=== PATIENT | female | born 1970 | race Caucasian/White ===

== ENCOUNTER 2016-11-08 13:39 | Emergency (ER) | payer OTHER ==
[~2016-11-08] VITALS: Ht 162.6 cm; Wt 100.8 kg
[~2016-11-08 13:39] MED LIST: CALC200T3 PO; DICY10CA3 PO; DULO60CA6 PO; ESCI20TA PO; FURO-69 PO; IBUP100O7 PO; OMEP10CA3 PO; ONDA4TAB7 PO; SUMA100T3 PO; TOPI100T39 PO; TRAM-29 PO
[2016-11-08 14:21] LABS: POTASSIUM ISTAT 3.6 mmol/L (3.5-5.0)
[2016-11-08 14:41] LABS: ALBUMIN 3.4 g/dL (3.4-5.0); ALK PHOS 89 U/L (46-116); ALT (SGPT) 27 U/L (14-59); AST (SGOT) 18 U/L (15-37); DIRECT BILIRUBIN < 0.1 mg/dL (0.0-0.2); TOTAL BILIRUBIN 0.2 mg/dL (0.2-1.0); TOTAL PROTEIN 6.6 g/dL (6.4-8.2)
--- NOTE | 2016-11-08 14:43 | RAD ---
Exam performed: CT scan of the head without contrast. Date of Service: 11/08/16. Comparison: None available. Clinical History: Dizziness for 2 weeks. Technique: Helical acquisitions are obtained from the foramen magnum to the vertex without intravenous administration of contrast. Findings: The ventricles are midline without evidence of dilatation. Normal toscano-white differentiation is maintained. There is no extra axial fluid collection, intraparenchymal hemorrhage or mass lesion. The visualized portions of the orbits and the mastoid air cells appear clear. Mucoperiosteal thickening seen in the left maxillary sinus. The calvarium is intact. Impression: 1. No acute intracranial process detected. 2. Left maxillary sinus disease. PQRS Compliance Statement: One or more of the following individualized dose reduction techniques were utilized for this examination: 1. Automated exposure control 2. Adjustment of the mA and/or kV according to patient size 3. Use of iterative reconstruction technique
[2016-11-08] MEDS ORDERED: MECLIZINE HCL 12.5 MG TABLET. PO ONE (14:45)
[2016-11-08] MEDS ORDERED: ASPIRIN 325 MG TABLET PO ONE (14:45)
--- NOTE | 2016-11-08 14:55 | PHYS DOC ---
Past Medical History Past Medical History: Anxiety, Depression, Migraines, Other Additional Past Medical Histor: PANIC ATTACKS, CHRONIC BACK PAIN Past Surgical History: Cholecystectomy, Hysterectomy, Tubal ligation Alcohol Use: None Drug Use: None Adult General Chief Complaint Chief Complaint: MULTIPLE COMPLAINTS HPI HPI Patient is a 46 year old female who presents with multiple complaints from primary care doctor's office. She had an episode of chest pain last night prior to midnight after picking up her cat, that was left-sided, achy, constant lasting minutes to an hour, and was resolved when she woke this morning. She also notes intermittent anxiety recently but she is not currently anxious. She also notes intermittent dizziness that lasts seconds and is worse with head movements or changes of positions; this improves when she sits still. She also notes bilateral lower extremity edema that is worse than chronic bilateral lower extremity edema over the past few weeks. She also notes she had high blood pressure at her doctor's office, but she does not carry a diagnosis of hypertension. She denies headache, vision changes, numbness, tingling, weakness , dyspnea, orthopnea, exertional chest pain, exertional dyspnea, cough, hemoptysis, leg pain, abdominal pain, nausea or vomiting, fever or chills. Review of Systems Review of Systems Constitutional: Denies fever or chills [] Eyes: Denies change in visual acuity, redness, or eye pain [] HENT: Denies nasal congestion or sore throat [] Respiratory: Denies cough or shortness of breath [] Cardiovascular: No additional information not addressed in HPI [] GI: Denies abdominal pain, nausea, vomiting, bloody stools or diarrhea [] : Denies dysuria or hematuria [] Musculoskeletal: Denies back pain or joint pain [] Integument: Denies rash or skin lesions [] Neurologic: Denies headache, focal weakness or sensory changes [] Endocrine: Denies polyuria or polydipsia [] Current Medications Current Medications Current Medications Medications (Trade) Dose Ordered Sig/Richardson Start Time Stop Time Status Last Admin Dose Admin Aspirin (Jayshree Aspirin) 325 mg 1X ONCE 11/08/16 14:45 11/08/16 14:46 DC 11/08/16 14:27 325 MG Meclizine HCl (Antivert) 25 mg 1X ONCE 11/08/16 14:45 11/08/16 14:46 DC 11/08/16 14:27 25 MG Allergies Allergies Allergies Coded Allergies Type Severity Reaction Last Updated Verified cephalexin Allergy Intermediate 10/20/14 Yes prednisone Allergy Intermediate 10/20/14 Yes Physical Exam Physical Exam Constitutional: Well developed, well nourished, no acute distress, non-toxic appearance. [] HENT: Normocephalic, atraumatic, bilateral external ears normal, oropharynx moist, no oral exudates, nose normal. [] Eyes: PERRLA, EOMI. [] Neck: Normal range of motion, supple. [] Cardiovascular:Heart rate regular rhythm [] Lungs & Thorax: Bilateral breath sounds clear to auscultation. Mild chest wall tenderness to left anterior chest in the area of complaint with no palpable or visual abnormality [] Abdomen: Bowel sounds normal, soft, no tenderness. [] Skin: Warm, dry, no erythema, no rash. [] Back: Normal range of motion. [] Extremities: No tenderness, ROM intact, 1+ bilateral lower extremity edema, no palpable cord, no skin color changes. [] Neurologic: Alert and oriented X 3, normal motor function, normal sensory function, no focal deficits noted, cranial nerves II through XII intact, no pronator drift, normal Romberg, normal finger to nose, ambulatory with a narrow steady gait. [] Psychologic: Affect normal, judgement normal, mood normal. [] Current Patient Data Vital Signs Vital Signs Date Time Temp Pulse Resp B/P Pulse Ox O2 Delivery O2 Flow Rate FiO2 11/08/16 14:08 98.5 94 14 166/92 97 Room Air 98.5 Lab Values Laboratory Tests Test 11/08/16 14:00 11/08/16 14:05 11/08/16 14:06 Total Bilirubin 0.2mg/dL (0.2-1.0) Direct Bilirubin < 0.1mg/dL (0.0-0.2) Aspartate Amino Transferase (AST) 18U/L (15-37) Alanine Aminotransferase (ALT) 27U/L (14-59) Alkaline Phosphatase 89U/L (46-116) VM-Eeo-Q-Type Natriuretic Peptide 380pg/mL (0-124) H Total Protein 6.6g/dL (6.4-8.2) Albumin 3.4g/dL (3.4-5.0) POC Hemoglobin 12.9g/dL (12-15) POC Hematocrit 38% (36-40) POC Sodium 141mmol/L (135-145) POC Potassium 3.6mmol/L (3.5-5.0) POC Chloride 107mmol/L (98-110) POC Total CO2 21mmol/L (23-32) L Anion Gap 18mmol/L (6-14) H POC Blood Urea Nitrogen 5mg/dL (8-26) L POC Creatinine 0.7mg/dL (0.5-1.4) Glucose Level 117mg/dL (70-99) H POC Ionized Calcium (Rosina) 1.17mmol/L (1.13-1.32) POC Troponin I 0.00ng/ml (<0.08) Laboratory Tests 11/08/16 14:05 EKG EKG EKG as interpreted by me as normal sinus rhythm, rate 77, no ST-T changes, normal intervals, no ectopy Radiology/Procedures Radiology/Procedures Chest xray as interpreted by me with no acute cardiopulmonary disease process Head CT without contrast Impression: 1. No acute intracranial process detected. 2. Left maxillary sinus disease. DICTATED and SIGNED BY: ANTONIO ABREU MD DATE: 11/08/16 0535 Course & Med Decision Making Course & Med Decision Making Pertinent Labs and Imaging studies reviewed. (See chart for details) Workup is unremarkable. Encouraged close follow-up with primary care for complaints and high blood pressure here. Return precautions given. She understands and agrees with plan. Dragon Disclaimer Dragon Disclaimer This electronic medical record was generated, in whole or in part, using a voice recognition dictation system. Departure Departure Impression: Primary Impression: Chest pain Additional Impressions: Dizziness Bilateral lower extremity edema Disposition: HOME, SELF-CARE Condition: STABLE Referrals: MIGUEL ÁNGEL FORMAN MD (PCP) Patient Instructions: Chest Pain (Nonspecific), [id number], Vertigo, Easy-to- Read Additional Instructions: Take meclizine as needed for dizziness that is likely vertigo. Follow-up with your primary care doctor. Return for any concerns. Scripts Meclizine Hcl 25 Mg Tablet1 Tab PO PRN TID PRN DIZZINESS #20 TAB Prov:Lili ELY MD 11/08/16 Problem Qualifiers Primary Impression: Chest pain Chest pain type: other chest pain Qualified Code: R07.89 - Other chest pain Lili ELY MD Nov 08, 2016 14:55
--- NOTE | 2016-11-08 15:03 | RAD ---
Chest, 2 views, 11/08/2016: History: Chest pain The heart size and pulmonary vascularity are normal. No pulmonary infiltrates are seen. There is no evidence of pleural fluid. Mild spurring is present in the spine. IMPRESSION: No acute cardiopulmonary abnormality is detected.
[2016-11-08] MEDS ORDERED: MECL25TA3 PO (15:05)
[2016-11-08 15:18] VITALS: BP 166/92
--- NOTE | 2016-11-09 07:05 | EKG ---
[facility] [address] [place] [address] Test Date: 2016-11-08 Test Time: 13:47:27 Pat Name: JULY HART Department: Room: Gender: F Training And Documentation Specialist: : 1970 Requested By: Lili ELY Order Number: [id number] Reading MD: Measurements Intervals [place] Rate: 77 P: 0 ME: 146 QRS: 6 QRSD: 100 T: 24 QT: 390 QTc: 443 Interpretive Statements SINUS RHYTHM RI6.01 Unconfirmed report No previous ECG available for comparison
== END 2016-11-08 15:22 | disposition home or self-care (01) ==
LOC: ER 13:39
DX: R07.89 Other chest pain (principal); R42 Dizziness and giddiness; R60.0 Localized edema; G43.909 Migraine, unspecified, not intractable, without status migrainosus; G89.29 Other chronic pain; F41.9 Anxiety disorder, unspecified; F32.9 Major depressive disorder, single episode, unspecified; Z90.49 Acquired absence of other specified parts of digestive tract; Z90.710 Acquired absence of both cervix and uterus; Z98.51 Tubal ligation status; Z88.1 Allergy status to other antibiotic agents; Z88.8 Allergy status to other drugs, medicaments and biological substances
CPT/HCPCS: 36415; 70450; 71020; 80047; 80076; 83880; 84484; 93005; 99285; J8597

== ENCOUNTER → 2017-04-27 | Outpatient (CLI) | payer OTHER ==
[~2017-04-27] MED LIST changes: -ESCI20TA PO; +ESCITALOPRAM OX20 MG PO; +IBUP100O24 PO; -IBUP100O7 PO; +MECL25TA3 PO; -TOPI100T39 PO; +TOPI100T42 PO; -TRAM-29 PO; +TRAM-48 PO
--- NOTE | 2017-04-27 12:07 | RAD ---
Indication back pain for several years. AP and lateral views of the lumbar spine were obtained as well as a coned view targeted to the lumbosacral junction. Vertebral height alignment and disc spaces are unremarkable. Significant degenerative changes are not seen. No acute finding is apparent. IMPRESSION: Normal plain films of the lumbar spine
== END ==
LOC: RAD 09:36
PROVIDERS: ATTEND Surgery
DX: M54.9 Dorsalgia, unspecified (principal)
CPT/HCPCS: 72100

== ENCOUNTER → 2017-08-22 | Outpatient (CLI) | payer OTHER ==
--- NOTE | 2017-08-22 17:51 | RAD ---
3 views left shoulder radiograph 08/22/2017 Clinical indication: Left shoulder pain. Comparison: None. Findings: No acute fracture or traumatic malalignment. Left glenohumeral articulation is maintained. Periarticular soft tissues are unremarkable. Impression: No acute osseous abnormality.
--- NOTE | 2017-08-22 17:51 | RAD ---
3 views right foot radiograph 08/22/2017 Clinical indication: Nontraumatic right foot pain. Comparison: None. Findings: No acute fracture or traumatic malalignment. Joint spaces are maintained. Soft tissues unremarkable. Impression: No acute osseous abnormality.
== END | disposition home or self-care (01) ==
LOC: RAD 16:07
PROVIDERS: ATTEND Psychiatry & Neurology Neurology with Special Qualifications in Child Neurology
DX: M79.671 Pain in right foot (principal); M25.512 Pain in left shoulder
CPT/HCPCS: 73030; 73630

== ENCOUNTER → 2017-09-21 | Outpatient (CLI) | payer OTHER ==
--- NOTE | 2017-09-22 03:05 | PAIN ---
DATE OF SERVICE: 09/21/2017 PROGRESS NOTE FOR PAIN CLINIC DIAGNOSES: 1. Lumbar radiculopathy with lumbar degenerative disk disease. 2. Cervical radiculopathy with cervical degenerative disk disease. 3. Myofascial pain. HISTORY OF PRESENT ILLNESS: The patient is a 47-year-old female who returns for followup, last seen 09/29/2016. The patient had undergone epidural steroid injections x 3 at that time and reports about a 50% improvement into the back, hips and bilateral lower extremity pain. The patient reports that since that time, the pain has returned over the past 5 to 6 months or more in the low back, bilateral hips, primarily radiating to posterior gluteus, posterior thighs, posterior calf, lateral and anterior thighs as well and lateral lower legs. The patient reports it is worse with standing, walking, changing positions and sitting. She is unable to sit straight. She has to lean usually on her left side to get the pain off of her right side as her right side is more prominent and more painful with radiating pain into the right lower extremity. The patient reports no new motor or sensory deficits, no bowel or bladder incontinence. Reports pain is aching, tingling, burning also becoming more constant, radiating and sometimes more severe. The patient rates her pain as a 10 on a scale of 10 at its worse, 5 on average and a 3 at its least and is a 5 today. The patient reports it awakens her from sleep about every 5 to 6 hours at least once or twice at night. She can usually reposition and get back to sleep or take pain medication. The patient reports that she had a nurse practitioner evaluation for insurance who told her that she had fibromyalgia and she is wondering if this may indeed be the case. The patient has a history of very small disk protrusion at L5-S1 on an MRI scan dated 11/2015, but no further followup x-rays or MRIs have been performed and the patient has significant radicular component in the right leg especially, but also in the left. The patient reports no other new motor or sensory deficits or other complaints. We had suggested on her last visit almost a year ago for some water therapy and weight loss therapy. She is not performed either of these at this time. PHYSICAL EXAMINATION: VITAL SIGNS: Today, the patient's blood pressure is 160/92, pulse 77, respirations 18, temperature is 98.7 degrees Fahrenheit, height is 5 feet 4 inches and weight is 212 pounds. GENERAL: The patient is awake, alert, oriented, appropriate and very pleasant demeanor. HEENT: Head is normocephalic and atraumatic. Extraocular movements are intact and symmetrical. Oral cavity: Mucous membranes are moist and pink. Dentition is intact. NECK: Shows anterior throat is supple without palpable lymphadenopathy noted. Swallow reflex is symmetrical. CHEST: Shows clear to auscultation bilaterally. HEART: Shows S1 and S2 clear. No murmurs are auscultated. ABDOMEN: Obese, soft, nontender and nondistended. No palpable organomegaly is noted. No rebound or guarding demonstrated. MUSCULOSKELETAL: The patient's back shows spine grossly in the midline. Normal appearing thoracic kyphosis, cervical lordotic curvature and lumbar lordotic curvature. No previous bruises, lesions, rashes or scars are noted. With palpation, the patient's cervical paraspinous muscle shows diffuse tenderness in the inferior aspect and the middle aspect of the cervical paraspinous muscles, but without significant radiation. The patient has full rotational motion of the cervical spine both laterally as well as extension and flexion greater than 45 degrees, right and left lateral as well as extension fully and full forward flexion without significant difficulty. The patient's thoracic spine shows symmetrical with inspection of the trapezius as well as thoracic paraspinous musculature with some moderate tenderness with palpation, but no specific trigger points and no radiation of pain bilaterally. The patient's lumbar spine shows symmetrical lumbar paraspinous musculature, moderate tenderness with palpation in the middle and lower distribution of the paraspinous muscles, but again symmetrical, no evidence of atrophy, hypertrophy, no trigger points, no tenderness over the sacrum or sacroiliac regions. The patient shows good rotational motion both laterally greater than 10 degrees right and left well as extension greater than 10 degrees, forward flexion 45 degrees without significant pain reported. Lower extremities show deep tendon reflexes at 2+ in the patellar, 1+ tendo calcaneus tendons. Motor exam is 4 on a scale of 5 with the right dorsiflexion and extension and 5/5 on the left. The patient also has some pain with palpation in the medial and lateral malleolus on the right foot only, but no deficits with range of motion. Peripheral pulses are 1+ posterior tibial and dorsalis pedis pulses. No peripheral edema is noted. Options were discussed with the patient, the patient's old chart was reviewed as was her current medication regimen updated. Current review of systems updated today as well and we will check first a repeat MRI scan of the lumbar spine. It has been almost 2 years since she has had a scan with a small L5-S1 disk protrusion with increasing radicular pain especially in the right leg. This could be progressing and has not been evaluated in over a year. Also we will try Medrol Dosepak to see if this may decrease some swelling and inflammation potentially from disk protrusion or stenosis as well as generalized fibromyalgia pain. The patient was given instruction as well as side effects to be aware with the medication. We will follow up after MRI scan is obtained. MARYCRUZ PERALES MD DR: HARRY/mary JOB#: [id number] / [id number]
== END | disposition home or self-care (01) ==
LOC: PNCL 14:57
PROVIDERS: ATTEND Anesthesiology
DX: M51.16 Intervertebral disc disorders with radiculopathy, lumbar region (principal); M50.10 Cervical disc disorder with radiculopathy, unspecified cervical region
CPT/HCPCS: 99212

== ENCOUNTER → 2017-09-28 | Outpatient (CLI) | payer OTHER ==
--- NOTE | 2017-09-29 07:55 | KCIC ---
MRI Lumbar Spine without contrast History: Lumbar radiculopathy, low back pain for several years, bilateral lower extremity radiculopathy Technique: Multiplanar, multi sequential noncontrast MR imaging was performed of the lumbar spine. Contrast: None Comparison: 11/09/2015 Findings: Other than superior L4 Schmorl's node, lumbar vertebral body stature is preserved. Vertebral body AP alignment is maintained. Conus terminates at L2. There is mild degenerative disc disease at L2-3, mild disc desiccation L3-4, also degenerative disc disease of visualized inferior thoracic levels of T11-12 and T10-11. There is no significant marrow edema of the lumbar spine. There is mild edema of the T10-T11 endplates. L2-L3: There is minimal disc osteophyte complex and bulge. There is anterior annular tear as seen previously. Spinal canal and neural foramina are adequate. L3-L4: Spinal canal and neural foramina are adequate. L4-L5: Spinal canal and the neural foramina are adequate. L5-S1: Neural foramina and spinal canal are adequate. Impression: 1. There is mild degenerative disc disease and spondylosis L2-3. There is no significant lumbar spinal stenosis or neural foramina compromise. There is degenerative disc disease of visualized inferior thoracic levels, mild T10-T11 endplate edema likely reactive/degenerative in etiology. Electronically signed by: Harshal Griggs MD (09/29/2017 7:52 AM) [id number]
== END | disposition home or self-care (01) ==
LOC: KCIC MRI 16:42
PROVIDERS: ATTEND Anesthesiology
DX: M51.16 Intervertebral disc disorders with radiculopathy, lumbar region (principal); Z88.1 Allergy status to other antibiotic agents; Z88.8 Allergy status to other drugs, medicaments and biological substances
CPT/HCPCS: 72148

== ENCOUNTER → 2017-12-05 | Outpatient (CLI) | payer OTHER | END | disposition home or self-care (01) | LOC: PNCL 09:48 | DX: M51.16 Intervertebral disc disorders with radiculopathy, lumbar region (principal); M50.30 Other cervical disc degeneration, unspecified cervical region; R53.83 Other fatigue | CPT/HCPCS: 99212 ==

== ENCOUNTER → 2018-09-24 | Outpatient (CLI) | payer OTHER, MEDICAID ==
[~2018-09-24] MED LIST changes: -IBUP100O24 PO; +IBUP100O25 PO
--- NOTE | 2018-09-24 21:47 | PAIN ---
DATE OF SERVICE: 09/24/2018 PROGRESS NOTE FOR PAIN CLINIC DIAGNOSES: 1. Lumbar radiculopathy with lumbar degenerative disk disease. 2. Cervical radiculopathy with cervical degenerative disk disease. 3. Myofascial pain. HISTORY OF PRESENT ILLNESS: The patient is a 48-year-old female who returns for followup, last seen on 12/05/2017. The patient had recently normal MRI scan at that time but still significant pain in the low back with shooting pain into the left leg. The patient reports this is returning again. She did do well few years ago with a lumbar epidural steroid injection but with recently last year, MRI that was relatively normal in the lumbar spine. We elected to go with Savella as she does have some myofascial pain and a history of fibromyalgic pain. The patient did very well with the Savella and has been very well controlled with it since last September. The patient had not been seen since that time. We had her come in today for an office visit and to discuss her medications. The patient reports that she is doing very well with the Savella, decreases the pain significantly by at least 75%. The patient reports still some pain in the right shoulder as well as the low back but the pain is streaking into the left lower extremity at times, feels more electrical and it happens more at night, also has pain in the fingertips, which comes and goes in the right hand. The patient reports pain in the back and legs, sharp, shooting, tingling, stabbing at times, sometimes radiating, can get severe but generally is not. The patient is using heat therapy as well as stretching with message therapy using her 's inversion table, which seems to help the low back pain as well. The patient rates her pain as 8 on a scale of 10 at its worst in the legs, 7 in the back, on average is a 7 and at least is a 4 on a scale of 10. The patient reports her pain as a 4 today. The patient reports no new motor or sensory deficits and no new bowel or bladder incontinence or other complaints. PHYSICAL EXAMINATION: VITAL SIGNS: The patient's blood pressure 131/96, pulse 98, respirations are 18 and temperature is 98.9 degrees Fahrenheit. Height is 5 feet 4 inches and weighs 195 pounds. GENERAL: The patient is awake, alert, oriented, appropriate and very pleasant demeanor. HEENT: Head shows normocephalic and atraumatic. Extraocular movements are intact and symmetrical. Oral cavity: Mucous membranes moist and pink. Dentition is intact. NECK: Shows anterior throat supple without palpable lymphadenopathy noted. Swallow reflex is symmetrical. CHEST: Shows normal on inspection. Breath sounds clear to auscultation bilaterally. HEART: Shows S1 and S2 clear. No murmurs auscultated. ABDOMEN: Obese, soft, nontender and nondistended. No palpable organomegaly is noted. No rebound or guarding demonstrated. BACK: Shows spine grossly in the midline. Normal appearing thoracic kyphosis and lumbar lordotic curvature. Lumbar paraspinous muscle shows symmetrical on inspection, with palpation shows some moderate tenderness diffusely bilaterally but only diffusely without radiation. The patient has good rotational motion of the lumbar spine, both laterally as well as extension and flexion. The patient has some moderate tenderness with palpation in the mid and upper thoracic paraspinous musculature in the rhomboid, the right greater than the left, without specific trigger points but diffusely tender and firm, more so than the left side in this region. The patient shows no radiation of pain. Lumbar paraspinous musculature likewise is moderately tender bilaterally with palpation but only diffusely in the middle and lower distribution of the paraspinous muscles. EXTREMITIES: The patient's upper extremities show deep tendon reflexes 2+ in the biceps and triceps tendons. Motor exam is strong with marine habitat resource specialist strength rated at 5/5 and equal. Lower extremities show deep tendon reflexes at 1+ in the patellar and tendo-calcaneus tendons. Motor exam is strong with 4-5 but symmetrical dorsiflexion, extension, quadriceps and hamstring flexion. Peripheral pulses are 2+ radial, 1+ posterior tibia. No peripheral edema is noted bilaterally in the upper or lower extremities. The patient does have multiple lesions on the upper extremities in a parklike fashion. When asked about these, the patient reports she has been picking at them as she had some ringworm recently but is maintaining the wound as she is scratching them frequently, does not appear to be infected. No drainage. They are dry but erythematous and parklike in fashion of various stages of healing scabs. Options were discussed with the patient. The patient's old chart was reviewed as well as her current medication regimen updated. Current review of systems updated today as well and we will refill the patient's Savella 50 mg twice daily as she does very well with this and has been controlling her pain adequately. Also, we will try Medrol Dosepak in the meantime as she has some more diffuse pain into the left lower extremity and did well with epidural steroids in the past. We will see how this does before ordering any further x-rays or MRI scans if it resolves the radicular type pain in the Savella, which has been controlling her myofascial pain significantly as well, we will maintain. The patient was given instructions as well as side effects to be aware of each of medications. We will follow up as scheduled. MARYCRUZ PERALES MD DR: HARRY/nts JOB#: [id number] / [id number]
== END | disposition home or self-care (01) ==
LOC: PNCL 13:29
PROVIDERS: ATTEND Anesthesiology
DX: M51.16 Intervertebral disc disorders with radiculopathy, lumbar region (principal); M50.10 Cervical disc disorder with radiculopathy, unspecified cervical region; M79.18 Myalgia, other site
CPT/HCPCS: G0463

== ENCOUNTER → 2019-06-11 | Outpatient (CLI) | payer OTHER, MEDICAID ==
[~2019-06-11] MED LIST changes: -OMEP10CA3 PO; +OMEP10CA4 PO; +POTA20TA82 PO; +TRIA1CAP3 PO
--- NOTE | 2019-06-11 15:35 | PAIN ---
DATE OF SERVICE: 06/11/2019 PROGRESS NOTE FOR PAIN CLINIC DIAGNOSES: 1. Lumbar radiculopathy with lumbar degenerative disk disease. 2. Cervical radiculopathy with cervical degenerative disk disease. 3. Myofascial pain. HISTORY OF PRESENT ILLNESS: The patient is a 49-year-old female who returns for followup, last seen on 09/2018. We had been managing with Savella as well as a Medrol Dosepak. Previously she had lumbar epidural steroid injections with good results, most recently in 2016 with 100% improvement after her third injection. The patient reports the pain is now identical to what it was several years ago in the low back, bilateral lower extremities, posterolateral thighs, anterior thighs, medial thighs, medial and posterior lower legs with numbness and tingling. The patient reports it is sharp, shooting, stabbing, radiating, becoming more constant and unbearable with standing and walking, but on and off in intensity, better with sitting, better with lying down, but has been awakening her from sleep at least twice a night. The patient reports a 6-7 on a scale of 10 at its worst over the past week, 5 on average, 5 at its least and a 5 today. The patient reports no recent injury or accident. The pain has been returning for several months now, but getting worse gradually. The patient reports she is to the point where she needs to do something about it because it is becoming very problematic with all of her daily activities as well as sleep disruption. The patient reports no new bowel or bladder incontinence, no new motor or sensory deficits. The patient's old chart was reviewed as her current medication regimen updated. Current review of systems updated today as well and MRI scan reviewed from 2017. PHYSICAL EXAMINATION: VITAL SIGNS: The patient's blood pressure 144/78, pulse 99, respirations are 18, temperature is 99.2 degrees Fahrenheit, height is 5 feet 4 inches, weight is 200 pounds. GENERAL: The patient is awake, alert, oriented, appropriate, very pleasant demeanor. HEENT: Shows normocephalic, atraumatic. Extraocular movements are intact and symmetrical. Oral cavity: Mucous membranes moist and pink. Dentition is intact. NECK: Shows anterior throat supple without palpable lymphadenopathy noted. Swallow reflex symmetrical. CHEST: Shows normal on inspection. Breath sounds clear to auscultation bilaterally. HEART: Shows S1, S2 clear. No murmurs auscultated. ABDOMEN: Soft, nontender, nondistended. No palpable organomegaly is noted. No rebound or guarding demonstrated. BACK: Shows spine grossly in the midline. Normal appearing thoracic kyphosis and some minor flattening of lumbar lordotic curvature. Lumbar paraspinous muscle shows symmetrical on inspection, with palpation shows some moderate tenderness diffusely, but only diffusely without significant radiation. EXTREMITIES: The patient's lower extremities show deep tendon reflexes at 1+ in the patellar and tendo calcaneus tendons. Motor exam is approximately 4 on a scale of 5, but symmetrical and equal with dorsiflexion, extension, quadriceps and hamstring flexion. Peripheral pulses are 1+ posterior tibia. No peripheral edema is noted. The patient's straight leg raise noted to be positive bilaterally, but only about 35 to 40 degrees, decreased with knee flexion. Gaenslen's and Hunter's maneuvers are negative grossly bilaterally as well. The patient is able to stand, stand on her toes without significant difficulty or loss of balance, walks with a slight shuffling gait, does not use any assistive devices to ambulate. PLAN: Options were discussed with the patient. The patient's old chart was reviewed as her current medication regimen updated. Current review of systems updated today as well. We will preauthorize patient for lumbar epidural steroid injection as she has significant radicular pain in L4-L5 dermatomal distribution and has responded very well in the past to the epidural steroid injections with near 100% improvement after her last injection. The patient will continue doing stretching and strengthening exercises that she is doing these on her own. She has had some therapy in the past, but nothing recently. She is still doing some stretching from those therapy sessions on her own by her report. Also, encouraged her to walk as much as tolerated daily if possible. The patient will continue with this. Also, try Medrol Dosepak. The patient was given instruction as well as side effects to be aware of with the medication and will follow up in approximately 2 weeks and plan on lumbar epidural steroid injection at that time L4-L5 translaminar approach for bilateral L4-L5 dermatomal radiculopathy. MARYCRUZ PERALES MD DR: HARRY/mary JOB#: [id number] / [id number]
== END | disposition home or self-care (01) ==
LOC: PNCL 10:10
PROVIDERS: ATTEND Anesthesiology
DX: M51.16 Intervertebral disc disorders with radiculopathy, lumbar region (principal); M50.10 Cervical disc disorder with radiculopathy, unspecified cervical region; M79.18 Myalgia, other site
CPT/HCPCS: G0463

== ENCOUNTER → 2019-06-25 | Outpatient (CLI) | payer OTHER, MEDICAID ==
[~2019-06-25] MED LIST changes: +IOHEXOL 180 MG/ML 10 ML VIAL. ONE; +methylPREDNISolone ACETATE 40 MG/ML VIAL. ONE; +methylPREDNISolone ACETATE 80 MG/ML VIAL. ONE
--- NOTE | 2019-06-25 22:21 | PAIN ---
DATE OF SERVICE: 06/25/2019 PROGRESS NOTE FOR PAIN CLINIC DIAGNOSES: 1. Lumbar radiculopathy with lumbar degenerative disk disease. 2. Cervical radiculopathy with cervical degenerative disk disease. 3. Myofascial pain. HISTORY OF PRESENT ILLNESS: The patient is a 49-year-old female who returns for followup status post initial evaluation and preauthorization for lumbar epidural steroid injection. The patient reports still significant pain in the low back, bilateral lower extremities, right equal to left posterior gluteus, posterolateral thigh, lateral anterior thighs, medial thighs and posterior lower leg. The patient reports it is aching, sharp, dull, tingling, cramping, stabbing, radiating and sometimes unbearable, worse with walking and standing. The patient reports significant fatigue over the past few weeks as well and she has had a migraine for the last few days. The patient reports it is waking up her from sleep at night. She is having increased fatigability where she is unable to walk even the distance of her own driveway without stopping to rest. The patient reports she has no shortness of breath, no chest pain, but significant fatigue with the low back and lower extremities. PHYSICAL EXAMINATION: VITAL SIGNS: The patient's blood pressure 143/84, pulse 93, respirations 18, temperature 98.9 degrees Fahrenheit, height is 5 feet 4 inches, and weight is 199 pounds. GENERAL: The patient is awake, alert, oriented, appropriate, very pleasant demeanor. HEENT: Shows normocephalic, atraumatic. Extraocular movements are intact and symmetrical. Oral cavity: Mucous membranes moist and pink. Dentition is intact. NECK: Shows anterior throat supple without palpable lymphadenopathy noted. Swallow reflex symmetrical. CHEST: Shows normal on inspection. Breath sounds clear to auscultation bilaterally. HEART: Shows S1, S2 clear. No murmurs auscultated. ABDOMEN: Soft, nontender, nondistended. No palpable organomegaly is noted. No rebound or guarding demonstrated. BACK: Shows spine grossly in the midline. Normal appearing thoracic kyphosis and lumbar lordotic curvature. Lumbar paraspinous muscle shows symmetrical on inspection, on palpation shows some moderate tenderness diffusely bilaterally, but diffusely without significant radiation. The patient has good rotational motion of lumbar spine, both laterally as well as extension and flexion without difficulty. EXTREMITIES: Lower extremities show deep tendon reflexes 1+ in the patellar and tendo calcaneus tendons. Motor exam is approximately 4 on a scale of 5, but equal and symmetrical dorsiflexion, extension, quadriceps and hamstring flexion. Peripheral pulses are 1+ posterior tibia. No peripheral edema is noted. Options were discussed with the patient. The patient's old chart was reviewed as her current medication regimen updated. Current review of systems updated today as well. We will proceed with a lumbar epidural steroid injection today, the first in this series. Risks were discussed including but not limited to bleeding, infection, possibility of epidural hematoma, subsequent neurological compromise, dural puncture, headaches, spinal cord and/or nerve damage, side effects of steroid medication and poor results regarding pain control. The patient understands and wished to proceed. The patient will return to clinic in approximately 2 weeks for followup. She was counseled to return appointment, activity level, and side effects to be aware of. DIAGNOSIS: Lumbar radiculopathy with lumbar degenerative disk disease. PROCEDURE: Lumbar epidural steroid injection, translaminar approach L4-L5 level using C-arm guidance under sterile prep and drape using local anesthetic. MEDICATION INJECTED: Total of 120 mg Depo-Medrol plus 10 mL of preservative-free normal saline and 2 mL of contrast. CONDITION AT DISCHARGE: Stable. The patient tolerated the procedure well, had no complications. MARYCRUZ PERALES MD DR: HARRY/mary JOB#: [id number] / [id number]
== END ==
LOC: PNCL 10:26
PROVIDERS: ATTEND Anesthesiology
DX: M51.16 Intervertebral disc disorders with radiculopathy, lumbar region (principal); M50.10 Cervical disc disorder with radiculopathy, unspecified cervical region; M79.18 Myalgia, other site
CPT/HCPCS: 62323; J1030; J1040; Q9965

== ENCOUNTER → 2019-07-16 | Outpatient (CLI) | payer OTHER, MEDICAID ==
[~2019-07-16] MED LIST changes: -IOHEXOL 180 MG/ML 10 ML VIAL. ONE; -methylPREDNISolone ACETATE 40 MG/ML VIAL. ONE; -methylPREDNISolone ACETATE 80 MG/ML VIAL. ONE
--- NOTE | 2019-07-16 19:02 | PAIN ---
DATE OF SERVICE: 07/16/2019 PROGRESS NOTE FOR PAIN CLINIC DIAGNOSES: 1. Lumbar radiculopathy with lumbar degenerative disk disease. 2. Cervical radiculopathy with cervical degenerative disk disease. 3. Myofascial pain. HISTORY OF PRESENT ILLNESS: This is a 49-year-old female who returns for followup status post lumbar epidural steroid injection x 1. The patient reports about 75% improvement initially over the first week to 2 weeks and the pain began to return, still about 50% improvement. Her main complaint is severe migraine headaches and left-sided twitching in her arm and leg as well as some weakness in the left arm, which is inconsistent, note that she has been dropping some items occasionally. The patient has a followup with her neurologist in 2 days. I encouraged her to keep that appointment. The patient reports her back is doing better, but again returning with the pain in the low back, bilateral lower extremities, in the posterior gluteus, posterolateral thigh, lateral anterior thigh, anterior medial thigh, medial lower legs bilaterally, essentially equal right and left at this time with radicular pain in L4-L5 dermatomal distribution. The patient reports the pain is an 8 on a scale of 10 in the low back at its worst over the past week, 7 on average, 5 at its least, so 7 today. The patient reports it is aching, sharp, tight, shooting, dull, cramping in the back, tingling and burning as well in the leg and radiating, becoming constant with activity, walking, standing, changing positions. Initially, she has increased her activity with greater distance walking, doing household activities with greater ease and comfort and traveling with greater ease and comfort, but the pain has returned now in the back and legs, where it is waking her from sleep or it is sleep which is not very restful. The patient reports no new motor or sensory deficits or other complaints other than that with the left side as described. PHYSICAL EXAMINATION: VITAL SIGNS: The patient's blood pressure 139/87, pulse 93, respirations 18, temperature is 98.3 degrees Fahrenheit, height is 5 feet 4 inches, weight is 199 pounds. GENERAL: The patient is awake, alert, oriented, appropriate, very pleasant demeanor. HEENT: Shows normocephalic, atraumatic. Extraocular movements are intact and symmetrical. Oral cavity: Mucous membranes moist and pink. Dentition is intact. NECK: Shows anterior throat supple without palpable lymphadenopathy noted. Swallow reflex symmetrical. CHEST: Shows normal on inspection. Breath sounds clear to auscultation bilaterally. HEART: Shows S1, S2 clear. No murmurs auscultated. ABDOMEN: Soft, nontender, nondistended. No palpable organomegaly is noted. No rebound or guarding demonstrated. BACK: Shows spine grossly in the midline. Normal-appearing thoracic kyphosis and some flattening of lumbar lordotic curvature. Lumbar paraspinous muscle shows symmetrical on inspection, on palpation shows some moderate tenderness diffusely bilaterally going diffusely without significant radiation. EXTREMITIES: The patient's lower extremities show deep tendon reflexes at 1+ in the patellar and tendo calcaneus tendons are equal. Motor exam is approximately 4 on a scale of 5, but symmetrical dorsiflexion, extension, quadriceps and hamstring flexion. Peripheral pulses are 1+ bilaterally. No peripheral edema is noted in the lower extremities. Options were discussed with the patient. The patient's old chart was reviewed as her current medication regimen updated. Current review of systems updated today as well. We will preauthorize the patient for a second in the series of lumbar epidural steroid injection with fluoroscopic guidance. The patient with again significant improvement after the first injection with pain returning in the L4-L5 dermatomal distribution. We will preauthorize for a translaminar approach at the L4-L5 level. In the meantime, the patient will continue doing stretching and strengthening exercises, walking daily as tolerated, and again will follow up with her neurologist on the 10th of this month. MARYCRUZ PERALES MD DR: HARRY/mary JOB#: [id number] / [id number]
== END | disposition home or self-care (01) ==
LOC: PNCL 14:15
PROVIDERS: ATTEND Anesthesiology
DX: M51.16 Intervertebral disc disorders with radiculopathy, lumbar region (principal); M50.10 Cervical disc disorder with radiculopathy, unspecified cervical region; M54.5 Low back pain; G43.909 Migraine, unspecified, not intractable, without status migrainosus
CPT/HCPCS: G0463

== ENCOUNTER → 2019-07-24 | Outpatient (CLI) | payer OTHER, MEDICAID ==
--- NOTE | 2019-07-24 13:21 | EEG ---
DATE OF SERVICE: 07/24/2019 EEG NUMBER: [id number] OBJECTIVE: The patient is a 49-year-old female with post-concussion syndrome. DESCRIPTION: This is a digital study. Electrodes are placed according to the international 10-20 system. Bipolar and referential montages are available. Activation procedures typically include hyperventilation and intermittent photic stimulation. INTERPRETATION: The waking background consists of 8 Hz, 20-50 microvolt activity. There is a large amount of beta activity. Stage 1 sleep is achieved. Hyperventilation and intermittent photic stimulation are noncontributory. IMPRESSION: This electroencephalogram with the patient awake and asleep is within normal limits. Beta activity usually represents a lack of relaxation or may be due to a medication effect. There is no focal, paroxysmal or epileptiform activity. Thank you for letting us help with the patient's care. BELLE ANDRADE MD DR: REGINA/mary JOB#: [id number] / [id number]
== END | disposition home or self-care (01) ==
LOC: RT 07:48
PROVIDERS: ATTEND Psychiatry & Neurology Neurology with Special Qualifications in Child Neurology
DX: F07.81 Postconcussional syndrome (principal); R55 Syncope and collapse; R42 Dizziness and giddiness
CPT/HCPCS: 95816

== ENCOUNTER → 2019-07-29 | Outpatient (CLI) | payer OTHER, MEDICAID ==
--- NOTE | 2019-07-29 10:16 | KCIC ---
EXAM: Brain MRI without contrast. HISTORY: Chronic migraine. TECHNIQUE: Multiplanar, multisequence magnetic resonance imaging of the brain was performed without contrast. COMPARISON: 10/20/2014 FINDINGS: There is no restricted diffusion to suggest acute or subacute infarction. There is no mass effect or midline shift. There is no hydrocephalus. There is a small nonspecific focus of T2/FLAIR hyperintensity within the posterior right periventricular white matter. The orbits are unremarkable. There is mild paranasal sinus mucosal thickening. There are fairly symmetrically prominent Meckel's caves, likely of no clinical significance. There is a tiny amount of fluid within the right mastoid air cells. There are normal flow voids within the cerebral vessels. IMPRESSION: 1. No acute intracranial finding. 2. Stable tiny nonspecific focus of signal change within the posterior right periventricular white matter. The differential includes chronic small vessel disease as well as a focus of chronic demyelination. Electronically signed by: Sepideh Gutierrez MD (07/29/2019 10:13 AM) [id number]
== END | disposition home or self-care (01) ==
LOC: KCIC MRI 09:16
PROVIDERS: ATTEND Psychiatry & Neurology Neurology with Special Qualifications in Child Neurology
DX: G43.719 Chronic migraine without aura, intractable, without status migrainosus (principal); M79.7 Fibromyalgia; R25.1 Tremor, unspecified; F07.81 Postconcussional syndrome; R42 Dizziness and giddiness; Z90.710 Acquired absence of both cervix and uterus; Z90.49 Acquired absence of other specified parts of digestive tract; Z98.51 Tubal ligation status
CPT/HCPCS: 70551

== ENCOUNTER → 2019-07-30 | Outpatient (CLI) | payer OTHER, MEDICAID ==
[~2019-07-30] MED LIST changes: +IOHEXOL 180 MG/ML 10 ML VIAL. ONE; +methylPREDNISolone ACETATE 40 MG/ML VIAL. ONE; +methylPREDNISolone ACETATE 80 MG/ML VIAL. ONE
--- NOTE | 2019-07-30 20:59 | PAIN ---
DATE OF SERVICE: 07/30/2019 PROGRESS NOTE FOR PAIN CLINIC DIAGNOSES: 1. Lumbar radiculopathy with lumbar degenerative disk disease. 2. Cervical radiculopathy with cervical degenerative disk disease. 3. Myofascial pain. HISTORY OF PRESENT ILLNESS: This is a 49-year-old female who returns for followup status post lumbar epidural steroid injection x 1 with about a 75% improvement initially, but down to about 50% improvement. This was back in 06/20/2019. The patient did well with these over the years traditionally, and the pain is returning now. Reports she has been stumbling and falling at home, worse with the walking and standing. Now, the pain is getting in both the lower extremities, not just the right side, but also on the left side. The patient reports the pain is 7 on a scale of 10 at its worst over the past week, 6-7 on average, and 6 at its least and is a 6 today. It is aching, sharp, dull, tight, shooting, cramping, stabbing, tingling, constant, radiating, unbearable at times in the low back and legs, also some pain in the neck and shoulders. She has recently had an EEG, has also an MRI of the brain via her neurosurgeon to look for any type of other etiology of the weakness in her body. The patient reports no new motor or sensory deficits, no new bowel or bladder incontinence. PHYSICAL EXAMINATION: VITAL SIGNS: The patient's blood pressure is 138/90, pulse 94, respirations 16, temperature is 98.6 degrees Fahrenheit, weight is 201 pounds. GENERAL: The patient is awake, alert, oriented, appropriate, very pleasant demeanor. HEENT: Shows normocephalic, atraumatic. Extraocular movements are intact and symmetrical. Oral cavity: Mucous membranes moist and pink. Dentition is intact. NECK: Shows anterior throat supple without palpable lymphadenopathy noted. Swallow reflex is symmetrical. CHEST: Shows normal on inspection. Breath sounds clear to auscultation bilaterally. HEART: Shows S1, S2 clear. No murmurs auscultated. ABDOMEN: Soft, nontender, nondistended. No palpable organomegaly is noted. No rebound or guarding demonstrated. BACK: Shows spine grossly in the midline. Normal appearing thoracic kyphosis and lumbar lordotic curvature. Lumbar paraspinous muscle shows symmetrical on inspection, on palpation shows some moderate tenderness diffusely in the middle and lower distribution of the paraspinous muscles, but only diffusely without significant radiation. EXTREMITIES: The patient's lower extremities show deep tendon reflexes at 1+ in the patellar and tendo calcaneus tendons. Motor exam is strong with approximately 4 on a scale of 5, but equal and symmetrical dorsiflexion, extension, quadriceps and hamstring flexion and are equal bilaterally. Peripheral pulses are 1+ posterior tibial. No peripheral edema is noted. Options were discussed with the patient. The patient's old chart was reviewed as her current medication regimen updated. Current review of systems updated today as well. We will proceed with a second in the series of lumbar epidural steroid injection today with fluoroscopic guidance. Risks were again discussed including, but not limited to bleeding, infection, possibility of epidural hematoma, subsequent neurological compromise, dural puncture, headaches, spinal cord and/or nerve damage, side effects of steroid medication and poor results regarding pain control. The patient understands and wished to proceed. The patient will return to clinic in approximately 2 weeks for followup. She was counseled on return appointment, activity level, and side effects to be aware of. DIAGNOSIS: Lumbar radiculopathy with lumbar degenerative disk disease. PROCEDURE: Lumbar epidural steroid injection, translaminar approach L4-L5 level using C-arm fluoroscopic guidance under sterile prep and drape using local anesthetic. MEDICATION INJECTED: The patient received a total of 120 mg Depo-Medrol plus 10 mL of preservative-free normal saline and 2 mL of contrast. CONDITION AT DISCHARGE: Stable. The patient tolerated the procedure well, had no complications. MARYCRUZ PERALES MD DR: HARRY/mary JOB#: [id number] / [id number]
== END ==
LOC: PNCL 14:00
PROVIDERS: ATTEND Anesthesiology
DX: M51.16 Intervertebral disc disorders with radiculopathy, lumbar region (principal); M50.10 Cervical disc disorder with radiculopathy, unspecified cervical region; M79.18 Myalgia, other site
CPT/HCPCS: 62323; J1030; J1040; Q9965

== ENCOUNTER → 2019-08-01 | Outpatient (CLI) | payer OTHER, MEDICAID ==
[~2019-08-01] MED LIST changes: -IOHEXOL 180 MG/ML 10 ML VIAL. ONE; -methylPREDNISolone ACETATE 40 MG/ML VIAL. ONE; -methylPREDNISolone ACETATE 80 MG/ML VIAL. ONE
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
== END ==
LOC: KCIC MRI 10:56
PROVIDERS: ATTEND Anesthesiology
DX: M51.16 Intervertebral disc disorders with radiculopathy, lumbar region (principal); M48.061 Spinal stenosis, lumbar region without neurogenic claudication
CPT/HCPCS: 72148

== ENCOUNTER → 2019-08-12 | Outpatient (CLI) | payer OTHER, MEDICAID ==
[~2019-08-12] MED LIST changes: +BUPIVACAINE MPF 0.25% 10 ML VIAL. ONE; +POTA20TA4 PO; -POTA20TA82 PO; +methylPREDNISolone ACETATE 40 MG/ML VIAL. ONE
== END ==
LOC: PNCL 13:21
PROVIDERS: ATTEND Anesthesiology
DX: M79.18 Myalgia, other site (principal); M51.16 Intervertebral disc disorders with radiculopathy, lumbar region; M50.10 Cervical disc disorder with radiculopathy, unspecified cervical region; Z72.89 Other problems related to lifestyle
CPT/HCPCS: 20552; J1030; J3490

== ENCOUNTER → 2019-09-19 | Outpatient (CLI) | payer OTHER, MEDICAID ==
[~2019-09-19] MED LIST changes: +GABA600T7 PO
--- NOTE | 2019-09-19 21:47 | PAIN ---
DATE OF SERVICE: 09/19/2019 PROGRESS NOTE FOR PAIN CLINIC DIAGNOSES: 1. Lumbar radiculopathy with lumbar degenerative disk disease. 2. Cervical radiculopathy with cervical degenerative disk disease. 3. Myofascial pain. HISTORY OF PRESENT ILLNESS: The patient is a 49-year-old female who returns for followup status post trigger point injections on 08/12/2019, did very well with these with about a 75% improvement initially, but the pain has returned now in the base of the neck and left shoulder and upper extremity with some significant radiating pain in the left arm into the hand with numbness and tingling in the hand. The patient reports it is an 8 on a scale of 10 at its worst over the past week, 7 on average, 5 at its least and is a 7 today. The patient reports it is aching, sharp, tight, dull, shooting, tingling, and burning with radiating pain in the left arm. The patient reports it is worse with weightbearing with left arm, also worse with walking, standing, changing positions, awakens her from sleep about every 5 hours at night. The patient reports no loss of motor function, but significant fatigability with the left arm, has some significant spasticity and cramping in the base of the neck and shoulder as well as in the upper back. The patient reports no new motor or sensory deficits, no new bowel or bladder incontinence. PHYSICAL EXAMINATION: VITAL SIGNS: The patient's blood pressure 130/83, pulse 85, respirations 16, temperature 98.3 degrees Fahrenheit, height is 5 feet 4 inches, weight is 202 pounds. GENERAL: The patient is awake, alert, oriented, appropriate, very pleasant demeanor. HEENT: Shows normocephalic, atraumatic. Extraocular movements are intact and symmetrical. Oral cavity: Mucous membranes moist and pink. Dentition is intact. NECK: Shows anterior throat supple without palpable lymphadenopathy noted. Swallow reflex symmetrical. CHEST: Shows normal on inspection. Breath sounds clear to auscultation bilaterally. HEART: Shows S1, S2 clear. ABDOMEN: Obese, soft, nontender, nondistended. BACK: Shows spine grossly in the midline. Slight exaggeration of thoracic kyphosis, some normal cervical lordotic curvature and thoracic kyphotic curvature is slightly flattened. Cervical paraspinous muscle shows symmetrical on inspection, with palpation shows some very firm rope-like musculature consistent with trigger point areas of musculature, more on the left than the right, but present bilaterally without specific radiation. This is true into the superior medial trapezius as well as the lateral trapezius, more on the left medial trapezius than the right with very firm rope-like musculature, this is true into the rhomboid distribution as well as the upper and mid thoracic paraspinous musculature, again worse on the left than the right with very firm rope-like musculature consistent with trigger point areas of muscle in the musculature palpated without significant radiation. EXTREMITIES: The patient's upper extremities show deep tendon reflexes at 2+ in the biceps, triceps tendons. Motor exam is strong with food preparation kitchen aide strength rated at 5/5 as is bicep and tricep flexion and symmetrical. Peripheral pulses are 2+ radial distribution. No peripheral edema is noted. Options were discussed with the patient. The patient's old chart was reviewed as her current medication regimen updated. Current review of systems updated today as well. We will proceed with trigger point areas of the identified musculature. Risks were again discussed including, but not limited to bleeding, infection, possibility of intravascular injection sequelae, spread of local anesthetic and numbness, pneumothorax, side effects of steroid medication and poor results regarding pain control. The patient understands and wished to proceed. The patient will return to the clinic in approximately 2 weeks for followup. She was counseled as to return appointment, activity level and side effects to be aware of. I also ordered MRI scan of cervical spine as she has increasing symptoms of cervical radiculopathy in the left arm. This will be scheduled soon as well. DIAGNOSIS: Myofascial pain. PROCEDURE: Trigger point injections, bilateral cervical paraspinous musculature, bilateral trapezius musculature, bilateral thoracic paraspinous musculature under sterile prep and drape using local anesthetic. MEDICATION INJECTED: A total of 11 mL of 0.25% bupivacaine as well as 40 mg total of Depo-Medrol after negative aspiration at each injection site. CONDITION AT DISCHARGE: Stable. The patient tolerated procedure well, had no complications. MARYCRUZ PERALES MD DR: HARRY/mary JOB#: [id number] / [id number]
== END ==
LOC: PNCL 10:03
PROVIDERS: ATTEND Anesthesiology
DX: M79.18 Myalgia, other site (principal); M51.16 Intervertebral disc disorders with radiculopathy, lumbar region; M50.10 Cervical disc disorder with radiculopathy, unspecified cervical region
CPT/HCPCS: 20553; J1030; J3490

== ENCOUNTER → 2019-09-25 | Outpatient (CLI) | payer OTHER, MEDICAID ==
[~2019-09-25] MED LIST changes: -BUPIVACAINE MPF 0.25% 10 ML VIAL. ONE; -methylPREDNISolone ACETATE 40 MG/ML VIAL. ONE
--- NOTE | 2019-09-25 11:12 | KCIC ---
MRI Cervical Spine Without Contrast History: Left cervical radiculopathy Technique: Multiplanar, multi sequential noncontrast MR imaging was performed of the cervical spine. Comparison: May 16, 2014 Findings: Cervical cord caliber is within normal limits, no defined or expansile signal abnormality. Cervical vertebral body stature is similar. There is [id number] degenerative disc disease at C5-6 and C6-7. There are posterior annular tears at C5-6 and C6-7. There is no significant marrow edema. There is negligible posterior subluxation of C6 relative to C7. C2-C3: Spinal canal and the neural foramina are adequate. C3-C4: Spinal canal and neural foramina are adequate. C4-C5: There is bilateral facet degenerative change. Neural foramina and spinal canal are adequate. C5-C6: There is disc osteophyte complex and bulge, also now superimposed shallow protrusion in the far right lateral recess. There is mild narrowing of the central canal about 9 to 10 mm, also mild narrowing of the far right lateral recess greater than previously. There is facet degenerative change greater on the right. There is very mild proximal narrowing of the right neural foramen, left neural foramen adequate. C6-C7: There is disc osteophyte complex and bulge, central canal minimally narrowed about 9 to 10 mm as seen previously. There is bilateral facet degenerative change, also degree of uncovertebral degenerative change. There is mild neural foramina compromise bilaterally. C7-T1: Spinal canal and neural foramina are adequate. Impression: 1. There is mild spinal stenosis as described at C5-6 and C6-7, somewhat increased at C5-6 in the interval comparing with 2013 exam. There is degenerative disc disease and spondylosis at C5-6 and C6-7. There is minimal neural foramina compromise bilaterally at C6-7 and on the right at C5-6. Electronically signed by: Harshal Griggs MD (09/25/2019 11:09 AM) [id number]
== END ==
LOC: KCIC MRI 09:59
PROVIDERS: ATTEND Anesthesiology
DX: M50.123 Cervical disc disorder at C6-C7 level with radiculopathy (principal); M48.02 Spinal stenosis, cervical region
CPT/HCPCS: 72141

== ENCOUNTER → 2019-10-10 | Outpatient (CLI) | payer OTHER, MEDICAID ==
[~2019-10-10] MED LIST changes: +MECL-75 PO; -MECL25TA3 PO
--- NOTE | 2019-10-10 09:34 | PAIN ---
DATE OF SERVICE: 10/10/2019 PROGRESS NOTE FOR PAIN CLINIC DIAGNOSES: 1. Lumbar radiculopathy with lumbar degenerative disk disease. 2. Cervical radiculopathy with cervical degenerative disk disease. 3. Myofascial pain. HISTORY OF PRESENT ILLNESS: The patient is a 49-year-old female who returns for followup status post MRIs, we had ordered on 09/25/2019, where performed cervical spine showing mild spinal stenosis at C5-C6 and C6-C7 with increased C5-C6 as compared to 2014 exam, degenerative disk disease and spondylosis at C5-C6 and C6-C7 with minimal neural foraminal compromise bilaterally at C6-C7 and on the right at C5-C6. The patient's low back showing degenerative changes throughout. The patient reports the pain has been increasing in the base of the neck, especially in the left arm and shoulder radiating to the left biceps, left forearm into the hand with numbness and tingling in the fingers, especially the thumb and first finger. The patient reports it is an 8 on a scale of 10 at its worst over the past week, 7 on average, 5 at its least and is a 7 today. The patient reports it is aching, sharp, shooting, cramping, tingling, becoming numb and worse with range of motion, raising her hand over her head on the left side as well as repetitive motions, driving a car, any weightbearing or fine motor movements, it is becoming more difficult with the left hand. The patient reports it is difficult when she is standing up, hard to get up from a seated position because of the pain in the shoulders and neck, especially on the left side, radiating to the left arm as described. The patient has tried stretching. She is doing some therapy exercises with her left arm, but again it is making the pain worse. The patient has been taking [id number] Tylenol as well as Advil without significant decrease in pain. The patient reports it awakens her from sleep at least every 4-5 hours as well. PHYSICAL EXAMINATION: VITAL SIGNS: The patient's blood pressure is 132/89, pulse 94, respirations 18, temperature 98.8 degrees Fahrenheit, height is 5 feet 4 inches, weight is 198 pounds. GENERAL: The patient is awake, alert, oriented, appropriate, very pleasant demeanor. HEENT: Head shows normocephalic, atraumatic. Extraocular movements are intact and symmetrical. Oral cavity: Mucous membranes moist and pink. Dentition is intact. NECK: Shows anterior throat supple without palpable lymphadenopathy noted. Posterior cervical musculature shows symmetrical, but very tender with palpation in the inferior aspect of the cervical paraspinous musculature into the left superior medial trapezius, which is not with trigger points, but with significant pain with palpation and is more firm than the right side without specific radiation. CHEST: Shows normal on inspection. Breath sounds are clear bilaterally. HEART: Shows S1, S2 clear. No murmurs auscultated. ABDOMEN: Soft, nontender, nondistended. EXTREMITIES: Upper extremities show deep tendon reflexes 2+ in the biceps and triceps tendons. Motor exam is 5/5 with talent consultant strength on the right and 4/5 on the left. Bicep and tricep flexion is 4/5 left, 5/5 right as well. Peripheral pulses are 2+ in radial distribution. No peripheral edema is noted. Shoulder shrug is strong and intact but with some moderate pain with resistance on the left side without loss of strength. This is true with abduction of shoulder to 90 degrees without loss of strength on resistance, but with significant pain on the left side only. Options were discussed with the patient. The patient's old chart was reviewed as her current medication regimen updated. Current review of systems updated today as well. We will preauthorize the patient for a cervical epidural steroid injection. She has a clinical C6-C7 radiculopathy in the left arm. We will plan on cervical epidural steroid injection in light of her recent MRI findings and symptoms at the C6-C7 level, translaminar approach. The patient will wait for preauthorization. In the meantime, we will continue with stretching and strengthening exercises and will follow up as scheduled. MARYCRUZ PERALES MD DR: HARRY/mary JOB#: [id number] / [id number]
== END | disposition home or self-care (01) ==
LOC: PNCL 08:03
PROVIDERS: ATTEND Anesthesiology
DX: M51.16 Intervertebral disc disorders with radiculopathy, lumbar region (principal); M50.10 Cervical disc disorder with radiculopathy, unspecified cervical region; M79.18 Myalgia, other site
CPT/HCPCS: G0463

== ENCOUNTER → 2019-10-31 | Outpatient (CLI) | payer MEDICARE, MEDICAID ==
[~2019-10-31] MED LIST changes: +IOHEXOL 180 MG/ML 10 ML VIAL. ONE; +methylPREDNISolone ACETATE 40 MG/ML VIAL. ONE; +methylPREDNISolone ACETATE 80 MG/ML VIAL. ONE
--- NOTE | 2019-10-31 11:52 | PAIN ---
DATE OF SERVICE: 10/31/2019 PROGRESS NOTE PAIN CLINIC DIAGNOSES: 1. Lumbar radiculopathy with lumbar degenerative disk disease. 2. Cervical radiculopathy with cervical degenerative disk disease. 3. Myofascial pain. HISTORY OF PRESENT ILLNESS: The patient is a 49-year-old female who returns for followup status post preauthorization for cervical epidural steroid injection and trigger point injections. The patient reports about 50% better with the trigger point injections. She has been approved for a cervical injection and would like to proceed with that today. Reports the pain in the base of the neck and left upper extremity in a radicular fashion, in the left arm, posterior deltoid, posterior upper arm and triceps, into the posterior and anterior forearm, into the hand with numbness and tingling, mostly on the left side, some on the right, but mostly on the left. The patient reports it is 7 on a scale of 10 at its worst over the past week, 6 on average, 4 at its least and is a 4 today. The patient reports it is aching, sharp, dull, tight, shooting, tingling, burning, cramping, stabbing, becoming more constant and radiating to the left arm. The patient reports it awakens her from sleep about every 3-4 hours. She has been wearing a lumbar back brace, which she reports does help the pain significantly and keeps her in upright position, which helps low back pain as well. PHYSICAL EXAMINATION: VITAL SIGNS: The patient's blood pressure is 134/87, pulse 98, respirations 16, temperature is 98.2 degrees Fahrenheit, height is 5 feet 4 inches, weight is 194 pounds. GENERAL: The patient is awake, alert, oriented, appropriate, very pleasant demeanor. HEENT: Shows normocephalic, atraumatic. Extraocular movements are intact and symmetrical. Oral cavity: Mucous membranes moist and pink. Dentition is intact. NECK: Shows anterior throat supple without palpable lymphadenopathy noted. Swallow reflex symmetrical. CHEST: Shows normal on inspection. Breath sounds clear to auscultation bilaterally. HEART: Shows S1, S2 clear. No murmurs auscultated. ABDOMEN: Obese, soft, nontender, nondistended. BACK: Shows spine grossly in the midline. The patient's cervical paraspinous muscle shows symmetrical on inspection, with palpation shows some moderate tenderness diffusely bilaterally going diffusely without significant radiation. The patient does show good rotational motion, slightly guarded, right and left lateral rotation past 45 degrees. Some mild guarding with extension, but not with forward flexion. EXTREMITIES: The patient's upper extremities show deep tendon reflexes at 2+ in the biceps and triceps tendons. Motor exam is approximately 4 on a scale of 5 with left senior advocate strength, bicep and tricep flexion and 5/5 on the right. Peripheral pulses are 2+ radial distribution. No peripheral edema bilaterally. Options were discussed with the patient. The patient's old chart was reviewed as her current medication regimen updated. Current review of systems updated today as well. We will proceed with a cervical epidural steroid injection today with fluoroscopic guidance. Risks were again discussed including, but not limited to bleeding, infection, possibility of epidural hematoma, subsequent neurological compromise, dural puncture, headaches, spinal cord and/or nerve damage, side effects of steroid medication and poor results regarding pain control. The patient understands and wished to proceed. The patient will return to clinic in approximately 2 weeks for followup. She was counseled as to return appointment, activity level and side effects to be aware of. DIAGNOSES: Cervical radiculopathy with cervical degenerative disk disease. PROCEDURE: Cervical epidural steroid injection, translaminar approach C6-C7 level using C-arm fluoroscopic guidance under sterile prep and drape using local anesthetic. MEDICATION INJECTED: A total of 120 mg Depo-Medrol plus 5 mL of preservative-free normal saline and 2 mL of contrast. CONDITION AT DISCHARGE: Stable. The patient tolerated the procedure well, had no complications. MARYCRUZ PERALES MD DR: HARRY/mary JOB#: [id number] / [id number]
== END | disposition home or self-care (01) ==
LOC: PNCL 10:11
PROVIDERS: ATTEND Anesthesiology
DX: M50.123 Cervical disc disorder at C6-C7 level with radiculopathy (principal); M51.16 Intervertebral disc disorders with radiculopathy, lumbar region; M79.18 Myalgia, other site; Z98.890 Other specified postprocedural states; Z88.8 Allergy status to other drugs, medicaments and biological substances
CPT/HCPCS: 62321; J1030; J1040; Q9965

== ENCOUNTER → 2019-12-05 | Outpatient (CLI) | payer MEDICARE, MEDICAID ==
[~2019-12-05] MED LIST changes: -IOHEXOL 180 MG/ML 10 ML VIAL. ONE; -methylPREDNISolone ACETATE 40 MG/ML VIAL. ONE; -methylPREDNISolone ACETATE 80 MG/ML VIAL. ONE
--- NOTE | 2019-12-05 12:50 | KCIC ---
EXAM: Abdomen sonogram. HISTORY: Epigastric pain. TECHNIQUE: Sonographic imaging of the abdomen was performed. COMPARISON: None. FINDINGS: The liver is normal in size. There is biliary ductal dilatation with the common bile duct caliber of 7 mm. This is likely due to reservoir effect status post cholecystectomy. The kidneys are unremarkable. The spleen is upper normal in size. The aorta, pancreas and inferior vena cava are partially obscured due to bowel gas. IMPRESSION: 1. Mild biliary ductal dilatation likely due to reservoir effect status post cholecystectomy. 2. Partially obscured midline structures due to bowel gas. Electronically signed by: Sepideh Gutierrez MD (12/05/2019 12:47 PM) [id number]
== END | disposition home or self-care (01) ==
LOC: KCIC US 09:51
PROVIDERS: ATTEND Internal Medicine Gastroenterology
DX: R10.13 Epigastric pain (principal); Z90.49 Acquired absence of other specified parts of digestive tract
CPT/HCPCS: 76700

== ENCOUNTER → 2020-05-12 | Outpatient (CLI) | payer MEDICARE, OTHER ==
[~2020-05-12] MED LIST changes: +MILN50TA PO; +TIZA4TAB8 PO
--- NOTE | 2020-05-12 09:17 | PDOC ---
Date of Service: DATE: 05/12/20 TIME: 09:09 Progress Note: Progress note for patient Risa Haque is a 50-year-old female returns for follow-up status post cervical epidural steroid injection x1 most recently seen October 31, 2019. Patient reports approximately 50% improvement in the neck and left upper extremity pain however the pain is returning now patient reports that is in the neck upper back mid back as well as in the left shoulder rating to the left arm patient works as a 9 on a scale of 10 is worse of the past week 7 on average 7 at its least and is 7 today. Patient describes the pain as a tingling burning cramping stabbing aching sharp dull tight radiating. Patient reports no new motor or sensory deficits no new bowel or bladder incontinence or other complaints. On physical exam: Blood pressure is 133/95 pulse is 96 respirations 18 temperature 98.2 F height is 5 feet 4 inches weight is 2 1 6 pounds. Patient is awake alert oriented appropriate very pleasant demeanor, HEENT shows normocephalic atraumatic, extraocular movements are intact and symmetrical, oral cavity shows mucous membranes moist and pink, dentition is intact, neck shows anterior throat supple without palpable lymphadenopathy noted neck shows good rotation of motion but with some moderate tenderness with extension as well as forward flexion and right and left lateral rotation past 45 degrees left slightly greater than right. Chest shows normal with inspection breath sounds are clear to auscultation bilaterally no rales rhonchi or wheezes auscultated. Heart shows S1-S2 clear no murmurs auscultated. Abdomen is soft nontender nondistended no palpable organomegaly is noted. Upper extremities show deep tendon reflexes at 2+/4+ in the biceps and triceps tendons, motor exam is 4 on a scale of 5 on the left and 5 out of 5 on the right. Shoulder shrug is intact but with moderate pain on the left with resistance as well as pain on the left with abduction of the left shoulder at 90 degrees. Options were discussed with the patient, patient's old chart was reviewed as her current medication regimen updated current review of systems updated today as well. Plan: Options were discussed with the patient including continued conservative medical management physical therapy is interventional techniques and she would like to pursue interventional techniques, we discussed a cervical epidural steroid injection his descriptions also anatomical model to describe the procedure. Patient with clinical C6-7 radiculopathy in the left upper extremity. Patient also has significant muscular tenderness consistent with trigger point areas of musculature in the thoracic paraspinous and rhomboid distribution as well as the left trapezius and cervical paraspinous musculature. We will preauthorize patient for cervical epidural steroid injection translaminar approach at the C6-7 level as well as trigger point injections of the identified musculature. Patient return to clinic in approximately 1 week after preauthorization and we will plan on cervical epidural steroid injection and trigger point injection at that time. Justicifation of Admission Dx: Justifications for Admission: Justification of Admission Dx: Comment: (outpatient) MARYCRUZ PERALES MD May 12, 2020 09:17
== END | disposition home or self-care (01) ==
LOC: PNCL 08:33
PROVIDERS: ATTEND Anesthesiology
DX: M54.12 Radiculopathy, cervical region (principal); Z88.8 Allergy status to other drugs, medicaments and biological substances; Z79.899 Other long term (current) drug therapy
CPT/HCPCS: G0463

== ENCOUNTER → 2020-05-26 | Outpatient (CLI) | payer MEDICARE, OTHER ==
[~2020-05-26] MED LIST changes: +IOHEXOL 180 MG/ML 10 ML VIAL. ONE; +methylPREDNISolone ACETATE 40 MG/ML VIAL. ONE; +methylPREDNISolone ACETATE 80 MG/ML VIAL. ONE
--- NOTE | 2020-05-26 09:25 | PDOC ---
Progress Note - Pain Clinic Date of Service: DOS: DATE: 05/26/20 TIME: 09:18 Diagnosis: Dx: Lumbar radiculopathy with lumbar degenerative disc disease Cervical radiculopathy with cervical degenerative disc disease Myofascial pain History or Present Illness: HPI: 50-year-old female returns for follow-up status post patient ports no new motor or sensory deficits no bowel or bladder incontinence reports her pain is a 9 on scale 10 is worse of the past week 8 on average 7 its least is 8 today. Patient ports pain is aching sharp dull tight shooting cramping stabbing burning in the back radiating shooting the legs as well as the upper extremities can be severe and unbearable worse with walking standing changing positions repeated motions with the upper extremities as well and causing significant headaches. Cervical and lumbar epidural steroid injections. Patient most recently had a cervical epidural steroid injection October 31, 2019 lumbar injection was done July 30, 2019. Patient reports did very well after each of the injections with the pain returning now significantly in the base the neck and shoulders and we will preauthorize her for cervical epidural steroid injection after last visit and she would like to proceed with that today. Patient ports still pain low back bi lateral lower extremities well posterior gluteus posterior lateral thigh lateral anterior thighs anterior medial thighs medial lower legs and radicular fashion following roughly an L4-5 dermatomal distribution. She also has significant pain in the base the neck and left shoulder left upper extremity greater than the right but present bilaterally in the shoulders and hands with some numbness and tingling as well as some fatigability with the upper extremities as previous. Patient reports also causing significant headaches Physical Exam: VS: Blood pressure is 133/84 pulse 85 respiration 16 temperature 98.1 F weight is 216 lbs PE: PHYSICAL EXAMINATION: GENERAL: The patient is awake, alert, oriented, appropriate, very pleasant demeanor HEENT: Shows normocephalic, atraumatic. Extraocular movements are intact and symmetrical. Oral cavity: Mucous membranes moist and pink. Dentition is intact. NECK: Shows anterior throat supple without palpable lymphadenopathy noted. CHEST: Shows normal on inspection. Breath sounds are clear bilaterally, no rales rhonchi or wheezes auscultated. HEART: Shows S1, S2 clear. No murmurs auscultated. ABDOMEN: Soft, nontender, nondistended. No palpable organomegaly is noted. No rebound or guarding demonstrated. BACK: Shows spine grossly in the midline. Normal-appearing cervical lordotic curvature, neck shows good rotation of motion with some moderate tenderness with extension but not with forward flexion right and left lateral rotation past 45 degrees closer to 90 degrees is somewhat guarded but without significant limitation. Posterior cervical musculature shows symmetrical inspection with palpation some moderate tenderness diffusely throughout the upper middle lower distribution the paraspinous muscles and into the superior medial trapezius slightly more on the left than the right with very firm tender musculature bilaterally. There is slightly increased thoracic kyphosis, some minor flattening of the lumbar lordotic curvature. Lumbar paraspinous muscles show symmetrical on inspection, on palpation shows some moderate tenderness diffusely throughout the upper, middle and lower distribution of the paraspinous muscles bilaterally without specific trigger points, without radiation of pain. The patient has good rotational motion of the lumbar spine, both laterally as well as extension and flexion without significant difficulty. No tenderness over the spinous processes, sacrum or sacroiliac regions. EXTREMITIES: Lower extremities show deep tendon reflexes 1 to in the patellar and tendo calcaneus tendons. Motor exam is 4 on a scale of 5 with right dorsi flexion, extension, quadriceps and hamstring flexion and 4/5 on the left. Peripheral pulses are 1+ posterior tibial. No peripheral edema is noted bilaterally. Upper extremity deep tendon reflexes are 2+ biceps and triceps tendons, motor exam shows manager contract strength at approximate 4 on a scale 5 but symmetrical as is bicep and tricep flexion bilaterally. extremities are warm and dry to touch, equal in color and appearance. SKIN: Shows warm and dry, good turgor. No edema. No sores, rashes or bruising throughout. Procedure: Procedure: Discussed with the patient. Patient will chart was reviewed as her current medication regimen updated current review of systems updated today as well. Proceed with a cervical epidural steroid injection today with fluoroscopic guidance. Risks were again discussed including but not limited to bleeding infection possibility of epidural hematoma and subsequent neurological compromise dural puncture headache spinal cord and or nerve side effects of steroid medication and poor results regarding pain control. Patient understands wished to proceed. Patient return to the clinic in approximately 2 weeks for follow-up. We discussed lumbar epidural steroid injection on her return as patient has clinical L4-5 dermatomal distribution pain in the bilateral lower extremities left greater than right. Will continue with stretching strength exercises in the meantime for the lower extremities. Patient continue with Tylenol as well as ibuprofen and Aleve as previous for the low back and lower extremity pain. Medication Injected: Med Injected: Procedure cervical epidural steroid injection at the C6-7 level, using local anesthetic under sterile prep and drape using C-arm fluoroscopic guidance under local anesthesia medications injected ; 120 mg Depo-Medrol + 5 mL normal saline and 2 mL contrast; condition at discharge is stable patient tolerated procedure well. and had no complications Condition at Discharge: Condition at Discharge: Condition at discharge stable patient tolerated the procedure well and had no complications MARYCRUZ PERALES MD May 26, 2020 09:24
== END | disposition home or self-care (01) ==
LOC: PNCL 08:37
PROVIDERS: ATTEND Anesthesiology
DX: M50.123 Cervical disc disorder at C6-C7 level with radiculopathy (principal); M51.16 Intervertebral disc disorders with radiculopathy, lumbar region; M79.18 Myalgia, other site; Z88.8 Allergy status to other drugs, medicaments and biological substances; Z79.899 Other long term (current) drug therapy
CPT/HCPCS: 62321; J1030; J1040; Q9965

== ENCOUNTER → 2020-06-09 | Outpatient (CLI) | payer MEDICARE, OTHER ==
[~2020-06-09] MED LIST changes: +BUPIVACAINE MPF 0.25% 10 ML VIAL. ONE
--- NOTE | 2020-06-09 08:38 | PDOC ---
Progress Note - Pain Clinic Date of Service: DOS: DATE: 06/09/20 TIME: 08:34 Diagnosis: Dx: Lumbar radiculopathy with lumbar degenerative disc disease Cervical radiculopathy with cervical degenerative disc disease Myofascial pain History or Present Illness: HPI: 50-year-old female returns follow-up status post cervical epidural to injection x1 May 26, 2020. Patient reports about 75% improvement in the neck and left upper extremity. Main complaint is back and low back pain with left and right lower extremity pain bilaterally. Patient reports her her neck and upper extremities are doing better her shoulder still has some pain on the left side of her low back is her main complaint with pain rating the posterior gluteus posterior lateral thigh lateral anterior thighs anterior medial thighs calves and medial and lower legs as well. Patient reports pain is a 9 on a scale of 10 is worse of the past week 8 on average 8 is least as an 8 today describes it as aching sharp dull tight shooting cramping stabbing tingling becoming more constant with walking standing changing positions waking her from sleep at least every 5-6 hours. Patient reports no new motor or sensory deficits no new bowel or bladder incontinence. Physical Exam: VS: Blood pressure is 131/86 pulse 91 respirations are 18 temperature 90.4 F weight is 214 pounds PE: PHYSICAL EXAMINATION: GENERAL: The patient is awake, alert, oriented, appropriate, very pleasant demeanor HEENT: Shows normocephalic, atraumatic. Extraocular movements are intact and symmetrical. Oral cavity: Mucous membranes moist and pink. NECK: Shows anterior throat supple without palpable lymphadenopathy noted. Swallow reflex symmetrical. CHEST: Shows normal on inspection. Breath sounds are clear bilaterally, no rales rhonchi or wheezes auscultated. HEART: Shows S1, S2 clear. No murmurs auscultated. ABDOMEN: Soft, nontender, nondistended, obese. No palpable organomegaly is noted. No rebound or guarding demonstrated. BACK: Shows spine grossly in the midline. Normal-appearing cervical lordotic curvature. There is slightly increased thoracic kyphosis, some minor flattening of the lumbar lordotic curvature. Lumbar paraspinous muscles show symmetrical on inspection, on palpation shows some moderate tenderness diffusely throughout the upper, middle and lower distribution of the paraspinous muscles bilaterally and also into the lower thoracic paraspinous musculature, firm and tender, but without specific trigger points, without radiation of pain. The patient has good rotational motion of the lumbar spine, both laterally as well as extension and flexion without significant difficulty. No tenderness over the spinous processes, sacrum or sacroiliac regions. EXTREMITIES: Lower extremities show deep tendon reflexes 1+ in the patellar and tendo calcaneus tendons. Motor exam is 4 on a scale of 5 with right dorsiflexion, extension, quadriceps and hamstring flexion and 4/5 on the left. Peripheral pulses are 1+ posterior tibial. No peripheral edema is noted bilaterally. Lower extremities are warm and dry to touch, equal in color and appearance. SKIN: Shows warm and dry, good turgor. No edema. No sores, rashes or bruising throughout. Procedure: Procedure: Options were discussed with the patient. Patient will chart reviews her current medication regimen updated current review of systems updated today as well. We will proceed with a lumbar epidural steroid injection today with fluoroscopic guidance risks were again discussed including but not limited to bleeding infection possibility of epidural hematoma subsequent neurological compromise dural puncture headache spinal cord and or nerve damage side effects of steroid medication and poor results chronic pain control. Patient understands wished to proceed. Patient return to clinic in approximately 2 weeks for follow-up was counseled as to return appointment activity level and side effects be aware of. Medication Injected: Med Injected: Procedure is lumbar epidural steroid injection under local anesthetic using sterile prep and drape at the L4-5 level using C-arm fluoroscopic guidance in both AP and lateral views medications injected is 120 mg Depo-Medrol + 10 mL preservative-free normal saline and 2 mL contrast- condition at discharge is stable patient tolerated procedure well had no complications. Condition at Discharge: Condition at Discharge: Condition at discharge stable patient tolerated procedure well had no complications. MARYCRUZ PERALES MD Jun 09, 2020 08:38
== END | disposition home or self-care (01) ==
LOC: PNCL 08:01
PROVIDERS: ATTEND Anesthesiology
DX: M51.16 Intervertebral disc disorders with radiculopathy, lumbar region (principal); M50.10 Cervical disc disorder with radiculopathy, unspecified cervical region; Z88.8 Allergy status to other drugs, medicaments and biological substances; Z79.899 Other long term (current) drug therapy
CPT/HCPCS: 62323; J1030; J1040; J3490; Q9965

== ENCOUNTER → 2020-06-23 | Outpatient (CLI) | payer MEDICARE, OTHER ==
[~2020-06-23] MED LIST changes: -IOHEXOL 180 MG/ML 10 ML VIAL. ONE; -methylPREDNISolone ACETATE 80 MG/ML VIAL. ONE
--- NOTE | 2020-06-23 08:57 | PDOC ---
Progress Note - Pain Clinic Date of Service: DOS: DATE: 06/23/20 TIME: 08:52 Diagnosis: Dx: myofascial pain Lumbar radiculopathy with lumbar degenerative disc disease Cervical radiculopathy with cervical degenerative disc disease History or Present Illness: HPI: 50-year-old female returns follow-up status post lumbar epidural steroid injection and cervical epidural steroid injection. Patient reports good results after cervical injection about 75% but only about 20% after lumbar epidural steroid duration patient complains pain still base the neck shoulders upper back mid back low back bilaterally somewhat worse on the left than right also some left shoulder pain patient reports that she has done multiple physical therapies including water therapy in the past without significant improvement she reports that she is still exercising every other day and has been riding a bike also going fishing walking and hiking and staying active especially can patient rates her pain is 8 on a scale of 10 is worse in the past week 8 on average 8 its least is an 8 today. Patient scribes pain is aching sharp dull tight shooting tingling burning worse in the neck and upper back and shoulders also some in the low back mid back as well. Patient reports no loss of motor function but significant difficulty with sleeping walking standing changing positions and she is exercising but has significant muscle fatigue after the exercise. Reports no new motor or sensory deficits no new bowel or bladder incontinence or other complaints. Physical Exam: VS: Blood pressure is 137/88 pulse 87 respirations 18 temperature 98.4 F weight is 217 pounds PE: PHYSICAL EXAMINATION: GENERAL: The patient is awake, alert, oriented, appropriate, very pleasant demeanor HEENT: Shows normocephalic, atraumatic. Extraocular movements are intact and symmetrical. Oral cavity: Mucous membranes moist and pink. NECK: Shows anterior throat supple without palpable lymphadenopathy noted. Swallow reflex symmetrical. CHEST: Shows normal on inspection. Breath sounds are clear bilaterally no rales rhonchi or wheezes auscultated. HEART: Shows S1, S2 clear. No murmurs auscultated. ABDOMEN: Soft, nontender, nondistended, obese. No palpable organomegaly is noted. No rebound or guarding demonstrated. BACK: Shows spine grossly in the midline. Normal-appearing cervical lordotic curvature cervical spine shows good rotation of motion both laterally as well as extension and flexion on palpation cervical paraspinous muscles show symmetrical but very firm ropelike musculature in the middle and inferior aspect of the cervical paraspinous muscles also into the superior medial trapezius bilaterally consistent with trigger point areas but without radiation. There is slightly increased thoracic kyphosis, some minor flattening of the lumbar lordotic curvature. Lumbar paraspinous muscles show symmetrical on inspection, on palpation shows some moderate tenderness diffusely throughout the upper, middle and lower distribution of the paraspinous muscles bilaterally and also into the lower thoracic paraspinous musculature, firm tender with multiple regions of very firm ropelike musculature consistent with trigger point areas of musculature but without radiation of pain. The patient has good rotational m otion of the lumbar spine, both laterally as well as extension and flexion without significant difficulty. No tenderness over the spinous processes, sacrum or sacroiliac regions. EXTREMITIES: Lower extremities show deep tendon reflexes 1+ in the patellar and tendo calcaneus tendons. Motor exam is 4 on a scale of 5 with right dorsiflexion, extension, quadriceps and hamstring flexion and 4/5 on the left. Peripheral pulses are 1+ posterior tibial. No peripheral edema is noted bilaterally. Lower extremities are warm and dry to touch, equal in color and appearance. SKIN: Shows warm and dry, good turgor. No edema. No sores, rashes or bruising throughout. Procedure: Procedure: Options were discussed with the patient. Patient's old chart was reviewed as her current medication regimen updated current review of systems updated today as well. We will proceed with trigger point injection of the identified musculature. Risks were discussed including but not limited to bleeding i nfection possibility of intravascular injection sequelae spread of local anesthetic and numbness pneumothorax side effects of steroid medication and poor results rating pain control. Patient understands wished to proceed. Patient return to the clinic in approximately 2 weeks for follow-up. We discussed continued physical therapy is water therapy as patient is not interested in t hese at this time I encouraged her to do exercise on her own consistently daily or every other day at the least to better condition her musculature. Patient understands Medication Injected: Med Injected: Under sterile prep, trigger point were identified in the cervical paraspinous posterior bilaterally and the trapezius musculature bilaterally as well as the upper thoracic paraspinous muscles bilaterally and lower paraspinous musculature in the lumbar distribution bilaterally each was injected after sterile prep and negative aspiration each injection site total of 14 cc 0.25% ropivacaine total of 40 mg Depo-Medrol Condition at Discharge: Condition at Discharge: Condition at discharge stable patient tolerated procedure well had no complications. MARYCRUZ PERALES MD Jun 23, 2020 08:57
== END | disposition home or self-care (01) ==
LOC: PNCL 08:04
PROVIDERS: ATTEND Anesthesiology
DX: M51.16 Intervertebral disc disorders with radiculopathy, lumbar region (principal); M50.10 Cervical disc disorder with radiculopathy, unspecified cervical region; M79.18 Myalgia, other site; Z88.8 Allergy status to other drugs, medicaments and biological substances; Z79.899 Other long term (current) drug therapy
CPT/HCPCS: 20553; J1030; J3490

== ENCOUNTER → 2020-08-11 | Outpatient (CLI) | payer MEDICARE, OTHER ==
--- NOTE | 2020-08-11 08:27 | PDOC ---
Progress Note - Pain Clinic Date of Service: DOS: DATE: 08/11/20 TIME: 08:21 Diagnosis: Dx: Myofascial pain Lumbar radiculopathy with lumbar degenerative disc disease Cervical radiculopathy cervical degenerative disc disease History or Present Illness: HPI: 50-year-old female returns follow-up status post trigger point injection as well as cervical epidurals or injections and lumbar epidural steroid injections all with significant, but short-lived decrease in pain. Patient reports the epidurals last about 1 to 2 weeks at times and a trigger point injections last less than that. Patient was referred for physical therapy however this has not occurred yet and we will resubmit those orders for pool therapy today. Patient reports still significant pain mostly in the base the neck and left shoulder and upper neck. Patient reports a 9-10 on scale 10 at worst average and least over the last week and is a 9 today patient was aching sharp dull tight shooting on the left side radiating constant burning and stabbing pain that is tight and searing in the base of the neck on the left side as well as into the left shoulder. Patient reports no further radiation of pain wakes her from sleep about 3-4 times a night does not affect her bowel or bladder control patient reports that when the end of the day she was moving very very slowly as if she were an elderly woman. Patient feels better in the morning after she is rested and the pain then increases as the day goes on. Patient reports no new deficits Physical Exam: VS: Blood pressure is 139/82 pulse 78 respirations 18 temperature 90.5 F height 5 foot 4 inches weight is 222 pounds PE: PHYSICAL EXAMINATION: GENERAL: The patient is awake, alert, oriented, appropriate, very pleasant de meanor HEENT: Shows normocephalic, atraumatic. Extraocular movements are intact and symmetrical. Oral cavity: Mucous membranes moist and pink. Dentition is intact. NECK: Shows anterior throat supple without palpable lymphadenopathy noted. Swallow reflex symmetrical. CHEST: Shows normal on inspection. Breath sounds are clear bilaterally, no rales rhonchi wheezes auscultated. HEART: Shows S1, S2 clear. No murmurs auscultated. ABDOMEN: Soft, nontender, nondistended, obese. No palpable organomegaly is no hiram. No rebound or guarding demonstrated. BACK: Shows spine grossly in the midline. Normal-appearing cervical lordotic curvature. Cervical paraspinous muscle shows symmetrical with inspection on palpation some significant tenderness very firm ropelike musculature in the middle and lower distribution of cervical paraspinous muscle on the left including to the superior medial trapezius with very firm ropelike musculature consistent with trigger point areas of musculature without specific radiation. Rotation motion cervical spine shows some tenderness more to the right and to the left with pain on the left side. Full extension full forward flexion is performed without difficulty. There is slightly increased thoracic kyphosis, some minor flattening of the lumbar lordotic curvature. Lumbar paraspinous muscles show symmetrical on inspection, on palpation shows some moderate tenderness diffusely throughout the upper, middle and lower distribution of the paraspinous muscles without specific trigger points, without radiation of pain. The patient has good rotational motion of the lumbar spine, both laterally as well as extension and flexion without significant difficulty. No tenderness over the spinous processes, sacrum or sacroiliac regions. EXTREMITIES: Upper extremities show deep tendon reflexes 2+ in the biceps and triceps tendons. 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 Peripheral pulses are 2+ radial. No peripheral edema is noted bilaterally. Upper extremities are warm and dry to touch, equal in color and appearance. SKIN: Shows warm and dry, good turgor. No edema. No sores, rashes or bruising throughout. Procedure: Procedure: Options were discussed with the patient. Patient chart was reviewed as her current medication regimen updated current review of systems updated today as kymberly shook. We will proceed with trigger point injections of the identified musculature in the left cervical paraspinous posterior and left trapezius. Risks are discussed including but not limited to bleeding infection possibility of intravascular injection and sequelae spread of local episodic numbness pneumothorax side effects steroid medication and poor results regarding pain control. Patient understands wished to proceed. Patient return to clinic in approximately 2 to 3 weeks for follow-up was counseled as to return appointment activity level and side effects to be aware of. Medication Injected: Med Injected: Under sterile prep and drape patient's left cervical paraspinous posterior left trapezius was prepped and trigger points identified and injected x6 different trigger point areas with negative aspiration each injection site. Patient tolerated procedure well had no complications total medication used with 60 cc 0.25% Vivacaine a total of 40 mg Depo-Medrol. Patient tolerated procedure well and had no complications. Condition at Discharge: Condition at Discharge: Condition at discharge is stable, patient tolerated seizure well and had no complications. Discussed with patient going back on Cymbalta as she reports it has been off for about a week now and she has much significant increase in dizziness and loss of balance since stopping this. I asked her to please discuss this with her primary care physician before continuing this permanently but patient would like to go back on the Cymbalta and see if she feels better. MARYCRUZ PERALES MD Aug 11, 2020 08:27
== END | disposition home or self-care (01) ==
LOC: PNCL 07:31
PROVIDERS: ATTEND Anesthesiology
DX: M79.18 Myalgia, other site (principal); M51.16 Intervertebral disc disorders with radiculopathy, lumbar region; M50.10 Cervical disc disorder with radiculopathy, unspecified cervical region; Z79.899 Other long term (current) drug therapy; Z88.1 Allergy status to other antibiotic agents; Z88.8 Allergy status to other drugs, medicaments and biological substances
CPT/HCPCS: 20553; J1030; J3490; 20552